=== PATIENT | male | born 1985 | race Caucasian/White ===

== ENCOUNTER 2022-11-12 19:19 | Emergency (ER) | payer BC, SELFPAY ==
[2022-11-12 19:45] VITALS: BP 156/94; PULSE 79; RESP 14; TEMP 36.8; O2SAT 98; BMI 31.4
--- NOTE | 2022-11-12 20:02 | XRR_ITS ---
PROCEDURE INFORMATION: Exam: XR Left Elbow Exam date and time: 11/12/2022 8:26 PM Age: 37 years old Clinical indication: Pain; Elbow; Left; Patient HX: Was lifting a box and felt a pop , hand went numb. ; Additional info: Injury TECHNIQUE: Imaging protocol: Radiologic exam of the left elbow. Views: 3 or more views. COMPARISON: No relevant prior studies available. FINDINGS: Bones/joints: Normal. Soft tissues: Normal. XR/XR elbow LT min 3V* [id number] IMPRESSION: No acute findings.
[2022-11-12] MEDS: ketorolac 60 mg/2 mL INJ IM (21:36)
--- NOTE | 2022-11-12 23:24 | ED_ITS ---
HPI - Extremity Problem General: Chief complaint: Extremity Problem,Nontraumatic Stated complaint: L arm injury Time Seen by Provider: 11/12/22 20:40 History of Present Illness: Patient is in today for pain in his left elbow. He reports that for over a month he has been having pain in his elbow and has been seen by another provider who had him wear a band on his forearm to try and help. 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 He reports that he has been dealing with this but today he picked up a light package and felt a pop near his elbow and has had numbness and tingling to his fourth and fifth finger since that time. Associated symptoms: Deny chest pain or fever(s) Review of Systems Const: Denies: fever(s) or chills Card: Denies: chest pain or palpitations Resp: Denies: dyspnea, productive cough or non-productive cough Musc: Reports: extremity pain Physical Exam Const: COMMON NORMALS: no acute distress, patient oriented x3 and alert Resp: COMMON NORMALS: normal respiratory effort and No use of accessory muscles Extremity: NARRATIVE EXTREMITY EXAM: Patient with tenderness to palpation medial epicondyle. Patient is able to flex and extend the elbow. 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 Radial and ulnar pulse is intact to the hand. CSM is within normal limits. Patient reports a numbness tingling sensation to his fourth and fifth digit of his left hand. Pain is made worse by tapping medial side of the elbow. Neuro: COMMON NORMALS: patient oriented x3 SENSORIUM/ORIENTATION: Yes alert Course Vital Signs: Vital signs: Vital Signs Temperature 98.2 F 11/12/22 19:45 Pulse Rate 79 11/12/22 19:45 Respiratory Rate 14 11/12/22 19:45 Blood Pressure 156/94 11/12/22 19:45 Pulse Oximetry 98 11/12/22 19:45 Oxygen Delivery Me thod 11/12/22 19:45 MDM - Extremity (Nontraumatic) Medical Decision Making Differentials include repetitive motion injury, ulnar nerve entrapment, ulnar nerve impingement, medial epicondylitis. X-ray elbow normal. Toradol injection given in here today. Discussed conservative treatment at home including ice rest elevation. Refer to case management to help set up referral with orthopedics for further evaluation for ulnar nerve entrapment. Note is given for patient at work. Follow-up with orthopedics. Return to the ER for new or worsening symptoms Lab Data Radiology Impressions Elbow X-Ray 11/12/22 20:02 IMPRESSION: No acute findings. Discharge Plan Discharge Patient Disposition: Home Clinical Impression: Ulnar nerve impingement Condition: Stable Discharge Orders: Discharge ED (Routine); Ordered 11/12/22 Ordered By: Jordana Luna Referrals: Juan Carrillo FNP [Primary Care Provider] - Discharge Diet: Usual diet Discharge Activity: Limit activity as instructed Patient Instructions: Paresthesia (ED) Activity Restrictions/Additional Instructions: Take ibuprofen starting tomorrow every 8 hours as needed for pain and swelling. Ice, elevate the extremity, gentle range of motion. Follow-up with orthopedics. Follow-up with primary care provider as needed. Return to the ER for new or worsening symptoms. Stand Alone Forms: Work/School Release Coding Level of Care Code ED Vegetable Trimmer for Sara Vásquez
--- NOTE | 2022-11-13 09:48 | DCPLANNER ---
Addendum entered by Kat Bush 11/27/22 09:24: Patient had a follow up appointment scheduled with ortho - patient did attend appointment Addendum entered by Kat Bush 11/16/22 08:10: Patient has a follow up appointment scheduled for November at 4:[address] Asencio at ortho. Clinic will call patient with appointment information. Original Note: automotive general manager had message to schedule a followup appointment for patient with ortho. automotive general manager sent patients information to the front office staff at ortho. Patients information will be printed and reviewed. Clinic will call patient with appointment information.
== END 2022-11-12 21:46 | disposition home or self-care (01) ==
PROVIDERS: Emergency Provider Nurse Practitioner Family; PCP Nurse Practitioner Family
DX: G56.22 Lesion of ulnar nerve, left upper limb (principal)
CPT/HCPCS: 73080; 96372; 99284; J1885

== ENCOUNTER 2022-12-09 09:42 | Outpatient (CLI) | payer BC, SELFPAY ==
--- NOTE | 2022-12-09 10:04 | XR_ITS ---
WS: [id number] [place] [id number] REASON FOR EXAM: PAIN OF LEFT CLAVICLE FINDINGS: No acute or subacute fracture of the clavicle. No focal bone lesion or periosteal reaction. The scapula/glenoid and the proximal humerus are also unremarkable. XR/[place] [id number] IMPRESSION: No abnormality identified.
--- NOTE | 2022-12-09 10:28 | XR_ITS ---
WS: [id number] XR shoulder LT min 2V* [id number] REASON FOR EXAM: PAIN OF LEFT SHOULDER FINDINGS: No fracture or focal bone lesion. The acromioclavicular joint is intact and relatively well-preserved. Glenohumeral joint is intact and relatively well-preserved. Equivocal: Soft tissue density adjacent to the superior aspect of the mid to medial left clavicle. XR/XR shoulder LT min 2V* [id number] IMPRESSION: No significant bone or joint abnormality. Equivocal soft tissue abnormality which potentially could represent adenopathy. If present should be palpable.
== END 2022-12-09 09:43 | disposition home or self-care (01) ==
PROVIDERS: PCP Nurse Practitioner Family; Visit Provider Student in an Organized Health Care Education/Training Program
DX: M89.8X1 Other specified disorders of bone, shoulder (principal)
CPT/HCPCS: 73000; 73030

== ENCOUNTER 2022-12-17 10:03 | Outpatient (CLI) | payer BC, SELFPAY ==
--- NOTE | 2022-12-17 10:58 | XR_ITS ---
WS: [id number] EXAMINATION: XR cervical spine 3V* [id number] Cervical spine 3 views REASON FOR EXAM: ACUTE NECK PAIN COMPARISON: None available. FINDINGS: There is no sign of acute fracture or subluxation. Vertebral body heights and intervertebral disc sp aces are maintained. The cervical bony alignment and osseous densities appear normal. There is no p revertebral soft tissue change. XR/XR cervical spine 3V* [id number] IMPRESSION: No acute osseous abnormality.
== END 2022-12-17 10:04 | disposition home or self-care (01) ==
LOC: RAD 10:08
PROVIDERS: PCP Nurse Practitioner Family; Visit Provider Nurse Practitioner Family
DX: M54.2 Cervicalgia (principal)
CPT/HCPCS: 72040

== ENCOUNTER → 2023-01-04 09:59 | Outpatient (BNVA) | payer BC, SELFPAY | PROVIDERS: PCP Nurse Practitioner Family; Referring Provider Nurse Practitioner Family; Visit Provider Student in an Organized Health Care Education/Training Program | DX: M75.42 Impingement syndrome of left shoulder (principal) | CPT/HCPCS: 73030 ==

== ENCOUNTER → 2023-03-04 14:36 | Outpatient (BNVA) | payer BC, SELFPAY | PROVIDERS: PCP Nurse Practitioner Family; Visit Provider Physician Assistant | DX: M54.2 Cervicalgia (principal) | CPT/HCPCS: 72040 ==

== ENCOUNTER 2023-04-12 07:48 | Outpatient (CLI) | payer BC, SELFPAY ==
--- NOTE | 2023-04-12 08:00 | MR_ITS ---
WS: [id number] MRI CERVICAL SPINE NONCONTRAST HISTORY: Neck pain, LEFT upper extremity pain and weakness. No injury. COMPARISON: None available. Technique: Multiplanar, multisequence noncontrast imaging of the cervical spine. Straightening of the normal cervical lordosis is probably positional or due to mild spasm. No marrow edema or fractures. Disc spaces and vertebral body heights are well-maintained. Signal within the cervical cord is normal. Visualized posterior fossa is unremarkable. Craniocervical junction, C1 and C2 relationship, odontoid process and soft tissues are normal. C2-C3: Normal. C3-C4: Small RIGHT foraminal osteophytes. C4-C5: Very mild annular disc bulging and osteophytic ridging. Mild narrowing of the RIGHT foramen du e to osteophyte. C5-C6: Normal. C6-C7: Normal. C7-T1: Normal. Paraspinal soft tissue are normal. MR/MR cervical spin wo con* [id number] IMPRESSION: 1. No significant central or foraminal stenosis. 2. Very mild RIGHT foraminal narrowing due to an osteophyte. 3. No fractures.
== END 2023-04-12 07:49 | disposition home or self-care (01) ==
PROVIDERS: PCP Nurse Practitioner Family; Visit Provider Orthopaedic Surgery
DX: M54.2 Cervicalgia (principal); M47.22 Other spondylosis with radiculopathy, cervical region
CPT/HCPCS: 72141

== ENCOUNTER 2023-09-07 09:02 | Emergency (ER) | payer BC, SELFPAY ==
[2023-09-07 09:05] VITALS: BP 141/86; PULSE 61; RESP 24; TEMP 37; O2SAT 98; BMI 32.3
--- NOTE | 2023-09-07 09:12 | XR_ITS ---
WS: [id number] Portable AP upright chest, 09/07/2023 Clinical Data: dyspnea/cough Comparison: None. Findings: There is minimal patchy opacity in the left lower lobe which could represent pneumonia and/ or atelectasis. The right lung is clear. No nodules, masses or effusions are seen. The heart is tr l. The pulmonary vascularity is not increased. No pneumothorax is seen. Impression: Minimal patchy opacity in left lower lobe, possible pneumonia and/or atelectasis.
--- NOTE | 2023-09-07 09:12 | ECG_ITS ---
[facility] Test Date: 2023-09-07 Pat Name: Cj Amaya Department: Room: Gender: Male Conical Mixer: : 1985 Requested By: Won Diaz Order Number: [id number] Win MD: Basil Parmar M.D. Measurements Intervals [place] Rate: 60 P: 68 AL: 148 QRS: 62 QRSD: 106 T: 44 QT: 372 QTc: 375 Interpretive Statements SINUS RHYTHM No previous ECG available for comparison Electronically Signed On 09-07-2023 17:45:45 COOLER SUPERVISOR by Basil Parmar M.D. [id number]
--- NOTE | 2023-09-07 09:35 | ED_ITS ---
HPI - SOB/Dyspnea 2 General: Chief Complaint: Shortness of Breath/Dyspnea Stated Complaint: diff breathing, nausea Time Seen by Provider: 09/07/23 09:12 Source: patient Mode of arrival: EMS History of Present Illness: HPI Narrative: 38-year-old male presents emergency room via EMS for an episode of difficulty breathing with nausea. He was on route to work became very short of breath was breathing rapidly had numbness and tingling bilaterally in the face and in the fingertips it resolved before he got here. He has not previously had issues like this in the past. No recent fever sweats chills no chest pain no productive cough Associated symptoms: Deny abdominal pain, chest pain or fever(s) Review of Systems 2 Const: Denies: fever(s) or chills Card: Denies: chest pain Resp: Denies: dyspnea GI: Denies: abdominal pain : Denies: dysuria, urinary frequency or urinary urgency Musc: Denies: neck pain or back pain Skin/Breast: Denies: rash Physical Exam 2 Const: COMMON NORMALS: no acute distress GENERAL APPEARANCE: cooperative and comfortable ORIENTATION/CONSCIOUSNESS: Yes awake, Yes oriented to person, Yes oriented to place and Yes oriented to time HENMT: COMMON NORMALS: normocephalic, atraumatic and hearing grossly normal bilaterally HEAD & SCALP: normocephalic and atraumatic Resp: COMMON NORMALS: normal respiratory effort, No retractions, No use of accessory muscles and clear to auscultation bilaterally AUSCULTATION: clear to auscultation bilaterally Cardio: COMMON NORMALS: regular rate, regular rhythm and No murmurs present (Cardio) RATE: regular rate RHYTHM: regular rhythm GI: COMMON NORMALS: Soft to palpation and No hepatosplenomegaly present A USCULTATION: Yes normoactive bowel sounds PALPATION: Yes Soft to palpation, No Tenderness to palpation present (GI), No Guarding due to palpation present (GI) and Yes No hepatosplenomegaly present Extremity: COMMON NORMALS: normal to inspection, capillary refill normal, no clubbing, cyanosis or edema, no calf tenderness and no pedal edema Neuro: SENSORIUM/ORIENTATION: Yes oriented to person, Yes oriented to place and Yes oriented to time Skin: COMMON NORMALS: no rashes or lesions noted GENERAL SKIN EXAM: no rashes or lesions noted Course 2 Vital Signs: Vital signs: Vital Signs Temperature 98.6 F 09/07/23 09:05 Pulse Rate 70 09/07/23 13:59 Respiratory Rate 18 09/07/23 11:13 Blood Pressure 197/90 09/07/23 13:59 Pulse Oximetry 96 09/07/23 13:59 MDM - SOB/Dyspnea Medical Decision Making Patient was hyperventilating on arrival. Having carpopedal spasm bilateral numbness and tingling the hands feet and perioral numbness. This is resolved he is feeling better. Discharge him on promethazine for nausea as he was complaining of fair amount of nausea overall his symptoms have improved follow- up as needed return if has further problems Medical Records I reviewed the patient's medical records. Lab Data I reviewed the patient's lab results. 09/07/23 09:35 09/07/23 09:35 Labs/Radiology: Laboratory Results WBC 8.72 10^3/uL (3.29-11.43) 09/07/23 09:35 RBC 4.93 10^6/uL (3.85-5.65) 09/07/23 09:35 Hgb 15.10 g/dL (11.27-16.99) 09/07/23 09:35 Hct 45.4 % (37-53) 09/07/23 09:35 MCV 92.1 fl (82-101) 09/07/23 09:35 MCH 30.6 pg (27-33) 09/07/23 09:35 MCHC 33.3 g/dL (30-55) 09/07/23 09:35 RDW 13.6 % (12.1-15.1) 09/07/23 09:35 Plt Count 230 10^3/cmm (157-399) 09/07/23 09:35 MPV 9.9 fL (7.4-10.4) 09/07/23 09:35 Neut % (Auto) 54.7 % 09/07/23 09:35 Lymph % (Auto) 32.6 % 09/07/23 09:35 Coke % (Auto) 7.1 % 09/07/23 09:35 Eos % (Auto) 4.8 % 09/07/23 09:35 Baso % (Auto) 0.6 % 09/07/23 09:35 Neut # (Auto) 4.77 10^3/uL (1.8-7.7) 09/07/23 09:35 Lymph # (Auto) 2.8 10^3/uL (0.8-4.8) 09/07/23 09:35 Coke # (Auto) 0.6 10^3/uL (0.2-0.9) 09/07/23 09:35 Eos # (Auto) 0.4 10^3/uL (0.0-0.8) 09/07/23 09:35 Baso # (Auto) 0.1 10^3/uL (0.0-0.1) 09/07/23 09:35 Nucleated RBC % (auto) 0 % 09/07/23 09:35 Nucleated RBCs # 0.0 /100WBC 09/07/23 09:35 Sodium 141 mmol/L (136-145) 09/07/23 09:35 Potassium 4.2 mmol/L (3.5-5.1) 09/07/23 09:35 Chloride 111 mmol/L (98-107) H 09/07/23 09:35 Carbon Dioxide 21 mmol/L (22-29) L 09/07/23 09:35 Anion Gap 13.2 (5-19) 09/07/23 09:35 BUN 14 mg/dL (6-20) 09/07/23 09:35 Creatinine 0.8 mg/dL (0.7-1.2) 09/07/23 09:35 GFR Calculation 107.1 mL/min (90-130) 09/07/23 09:35 Glucose 111 mg/dL (65-115) 09/07/23 09:35 Calculated Osmolality 293 mOsm/kg (285-295) 09/07/23 09:35 Calcium 9.3 mg/dL (8.5-10.5) 09/07/23 09:35 Total Bilirubin 0.2 mg/dL (0.15-1.2) 09/07/23 09:35 AST 13 U/L (0-40) 09/07/23 09:35 ALT 19 U/L (0-41) 09/07/23 09:35 Alkaline Phosphatase 109 U/L (40-130) 09/07/23 09:35 Total Protein 6.5 g/dL (6.6-8.7) L 09/07/23 09:35 Albumin 3.9 g/dL (3.5-5.2) 09/07/23 09:35 Globulin 2.6 g/dL (1.3-4.6) 09/07/23 09:35 All radiology interpretation(s) finalized by discharge Discharge Plan Discharge Patient Disposition: Home Clinical Impression: Hyperventilation Condition: Stable Prescriptions: New promethazine 25 mg tablet 25 mg PO Q6H PRN (Reason: nausea and vomiting) Qty: 10 0RF No Action meloxicam 15 mg tablet 15 mg PO DAILY PRN (Reason: Pain) tizanidine 4 mg tablet 4 mg PO Q8H PRN (Reason: Spasms or pain) Discharge Orders: Discharge ED (Routine); Ordered 09/07/23 Ordered By: Won Cuevas Referrals: Juan Carrillo FNP [Primary Care Provider] - Discharge Diet: Usual diet Discharge Activity: Increase activity as tolerated Patient Instructions: Hyperventilation (ED), Opioid Safety, Pain Management Activity Restrictions/Additional Instructions: Thank you for choosing [facility] for your healthcare needs today. Please realize this is an emergency room and that we are providing you with a medical screening exam and this may not be complete and all inclusive of all the testing and or work up that you may need to determine your ailment or severity of your illness. It is very important that you follow up as instructed or that you return to the Emergency Department should you have concerns or if your condition changes or worsens in any way. Stand Alone Forms: Work/School Release Coding Level of Care Code ED Plans Examiner for Sara Vásquez
[2023-09-07 09:41] LABS: Basophils # 0.1 10^3/uL (0.0-0.1); Basophils % 0.6 %; Eosinophils # 0.4 10^3/uL (0.0-0.8); Eosinophils % 4.8 %; Hematocrit 45.4 % (37-53); Lymphocytes # 2.8 10^3/uL (0.8-4.8); Lymphocytes % 32.6 %; Mean Corpuscular HGB Conc 33.3 g/dL (30-55); Mean Corpuscular Hemoglobin 30.6 pg (27-33); Mean Corpuscular Volume 92.1 fl (82-101); Mean Platelet Volume 9.9 fL (7.4-10.4); Monocytes # 0.6 10^3/uL (0.2-0.9); Monocytes % 7.1 %; Neutrophils # 4.77 10^3/uL (1.8-7.7); Neutrophils % 54.7 %; Nucleated Red Blood Cells % 0 %; Platelet Count 230 10^3/cmm (157-399); Red Blood Count 4.93 10^6/uL (3.85-5.65); Red Cell Distribution Width 13.6 % (12.1-15.1); White Blood Count 8.72 10^3/uL (3.29-11.43)
[2023-09-07 09:49] VITALS: PULSE 63; O2SAT 95
[2023-09-07 10:05] LABS: Alanine Aminotransferase 19 U/L (0-41); Albumin Level 3.9 g/dL (3.5-5.2); Alkaline Phosphatase 109 U/L (40-130); Anion Gap 13.2 (5-19); Aspartate Amino Transferase 13 U/L (0-40); Blood Urea Nitrogen 14 mg/dL (6-20); Calcium 9.3 mg/dL (8.5-10.5); Carbon Dioxide 21 mmol/L (22-29); Chloride 111 mmol/L (98-107); Globulin 2.6 g/dL (1.3-4.6); Glomerular Filtration Rate 107.1 mL/min (90-130); Glucose 111 mg/dL (65-115); Osmolality Calculated 293 mOsm/kg (285-295); Potassium 4.2 mmol/L (3.5-5.1); Sodium 141 mmol/L (136-145); Total Bilirubin 0.2 mg/dL (0.15-1.2); Total Protein 6.5 g/dL (6.6-8.7)
[2023-09-07 11:13] VITALS: BP 138/101; PULSE 54; RESP 18; O2SAT 97
[2023-09-07 13:59] VITALS: BP 197/90; PULSE 70; O2SAT 96
== END 2023-09-07 14:02 | disposition home or self-care (01) ==
PROVIDERS: Emergency Provider Family Medicine; PCP Nurse Practitioner Family
DX: R06.4 Hyperventilation (principal)
CPT/HCPCS: 36415; 71045; 80053; 85025; 93005; 99285

== ENCOUNTER 2023-09-22 14:34 | Outpatient (CLI) | payer BC, SELFPAY ==
--- NOTE | 2023-09-22 14:39 | XR_ITS ---
WS: [id number] Exam: XR chest 2V* [id number] Date/Time of Exam: 09/22/2023 2:44 PM Reason For Exam: ABNORMAL CHEST XRAY Comparison 09/07/2023. The lungs are bilaterally clear. Normal cardiomediastinal silhouette and regional bony elements. Prev iously noted infiltrate in the LEFT lower lung has resolved. IMPRESSION: 1. Normal chest.
== END 2023-09-22 14:35 | disposition home or self-care (01) ==
LOC: RAD 14:35
PROVIDERS: PCP Nurse Practitioner Family; Visit Provider Nurse Practitioner Family
DX: R93.89 Abnormal findings on diagnostic imaging of other specified body structures (principal)
CPT/HCPCS: 71046

== ENCOUNTER 2023-10-08 08:02 | Outpatient (CLI) | payer BC, SELFPAY ==
--- NOTE | 2023-10-08 | ECG_ITS ---
[facility] Test Date: 2023-10-08 Pat Name: Cj Amaya Department: Room: Gender: Male Retail Pos Specialist: Negar DejesusValery : 1985 Requested By: Juan Nix Order Number: [id number] Win MD: Nacho Palomino M.D. Interpretive Statements NAME OF STUDY: EXERCISE SESTAMIBI STRESS TEST INDICATION: [SOB, ] EXERCISE DATA: The patient was exercised by Yeyo protocol. Baseline heart rate was 62 beats per minute. Baseline blood pressure was 141/72 millimeters of mercury. Target heart rate was 153 beats per minute. Maximum heart rate achieved was 173, which was 113% of the target heart rate. Maximum blood pressure was 214/58 millimeters of mercury. Total exercise time was 7 minutes 56 seconds. Maximum METs achieved was 10.2. The reason for ending the test was completion of protocol. The patient complained of shortness of breath during the stress test, which then resolved at the end of the test. ELECTROCARDIOGRAM: BASELINE: Showed sinus rhythm, normal axis, no significant ST-T changes at the baseline noted. [] EXERCISE: At the peak exercise level, [] No significant ST-T changes suggestive of ischemia noted. [] RECOVERY: During the recovery period, heart rate dropped appropriately. No significant ST-T changes in the recovery suggestive of ischemia noted. [] CONCLUSION: 1. Exercise capacity is good. 2. Heart rate response was appropriate. 3. Blood pressure response was appropriate 4. Symptoms not suggestive of ischemia. 5. Electrocardiogram portion of the stress test was not suggestive of ischemia. 6. Nuclear scan will be documented separately. Electronically Signed On 10-10-2023 13:38:33 INSPECTOR AND CLIPPER by Nacho Palomino M.D. [id number]
--- NOTE | 2023-10-08 08:05 | NMCV_ITS ---
NM enrique perf SPECT r/s* [id number] Cj Amaya Age: 38 Gender: M : 1985 Exam Date: 10/08/2023 09:04 Ordering Phys: Juan Carrillo Technologist: EDELMIRA Gutierres Exam Location: [facility] Indications: SHORTNESS OF BREATH STRESS TEST Please see separate stress test report in [facility] for full findings IMAGE PROTOCOL Rest/Stress 1 Exercise Day Radiopharmaceutical Dose (mCi) Administration Site Administered by Rest: Tc-99m 10.9 IV EDELMIRA David Sestamibi Stress:Tc-99m 32.8 IV EDELMIRA David Sestamiverona Rest: 08-Oct-2023 60 Discovery 630 Stress: 08-Oct-2023 30 Discovery 630 Radiopharmaceutical was injected at 91 % maximum heart rate. Images obtained in supine and prone position. SPECT RESULTS Technical Quality: Excellent Raw Data Analysis: Normal Image Corrections: No attenuation or motion correction applied Summed Stress Score: 0 Summed Rest Score: 1 Summed Difference Score: 0 PERFUSION FINDINGS SPECT images demonstrate homogeneous tracer distribution throughout the myocardium. FUNCTIONAL RESULTS (calculated via Gated SPECT) Stress Image LV EF (%): 55 Stress EDV (mL):133 TID: 1.01 Stress ESV (mL):60 FUNCTIONAL FINDINGS: There is normal left ventricular systolic function. IMPRESSIONS 1. Normal myocardial perfusion imaging with no evidence of ischemia 2. LV systolic function is normal Nacho Palomino MD (Electronically Signed) Final Date: 09 October 2023 13:58 S
[2023-10-08 08:15] VITALS: BMI 31.6
[2023-10-08 09:56] VITALS: BP 165/73; PULSE 96
== END 2023-10-08 08:03 | disposition home or self-care (01) ==
PROVIDERS: PCP Nurse Practitioner Family; Visit Provider Nurse Practitioner Family
DX: R06.02 Shortness of breath (principal); Z91.89 Other specified personal risk factors, not elsewhere classified
CPT/HCPCS: 36415; 78452; 93017; A9500